=== PATIENT | female | born 1975 | race Caucasian/White ===

== ENCOUNTER 2022-04-21 11:28 | Outpatient (CLI) | payer BC, SELFPAY ==
[2022-04-21 16:06] LABS: SARS PCR* Negative SARS-CoV-2 (Negative)
== END 2022-04-21 11:29 | disposition home or self-care (01) ==
LOC: FBOREF 11:28
PROVIDERS: Visit Provider Surgery
DX: Z20.822 Contact with and (suspected) exposure to COVID-19 (principal); Z01.818 Encounter for other preprocedural examination
CPT/HCPCS: 87635

== ENCOUNTER 2022-04-22 10:39 | Outpatient (CLI) | payer BC, SELFPAY | END 2022-04-22 10:40 | disposition home or self-care (01) | LOC: OP CLINIC 10:41 | PROVIDERS: Visit Provider Surgery | DX: Z12.11 Encounter for screening for malignant neoplasm of colon (principal); K63.5 Polyp of colon; K62.1 Rectal polyp | CPT/HCPCS: 45385; 88305; 99153; J2250; J3010 ==

== ENCOUNTER 2025-05-02 08:34 | Outpatient (CLI) | payer BC, SELFPAY ==
--- NOTE | 2025-05-02 10:02 | P.ANES_ITS ---
Anesthesia Charges Start Date/Time Anesthesia Start Date: 05/02/25 Anesthesia Start Time: 09:31 Stop Date/Time Anesthesia Stop Date: 05/02/25 Anesthesia Stop Time: 10:00 Coding CPT Codes CPT Codes: LESLYE [place] INT NDSC NOS - [id number] ([id number]) P2 - PATIENT W/MILD SYST DISEASE, QX - COSMETIC ASSEMBLER SVC W/ MD MED DIRECTION, QK - CLOTH EXAMINER MACHINE 2-4 CNCRNT LESLYE PROC
--- NOTE | 2025-05-02 10:02 | W.ANESCHARGE ---
Anesthesia Charges Start Date/Time Anesthesia Start Date: 05/02/25 Anesthesia Start Time: 09:31 Stop Date/Time Anesthesia Stop Date: 05/02/25 Anesthesia Stop Time: 10:00 Coding CPT Codes CPT Codes: LESLYE [place] INT NDSC NOS - [id number] ([id number]) P2 - PATIENT W/MILD SYST DISEASE, QX - FIRE WARDEN SVC W/ MD MED DIRECTION, QK - DIE DESIGNER 2-4 CNCRNT LESLYE PROC
--- NOTE | 2025-05-02 10:03 | P.ANES_ITS ---
Anesthesia Charges Start Date/Time Anesthesia Start Date: 05/02/25 Anesthesia Start Time: 09:31 Stop Date/Time Anesthesia Stop Date: 05/02/25 Anesthesia Stop Time: 10:00 Coding CPT Codes CPT Codes: LESLYE LWR INTST NDSC NOS - [id number] ([id number]) QK - HUMAN RESOURCES TECHNICIAN 2-4 CNCRNT LESLYE PROC, QX - HEALTH AND SAFETY TECH SVC W/ MD MED DIRECTION, P2 - PATIENT W/MILD SYST DISEASE
--- NOTE | 2025-05-02 10:03 | W.ANESCHARGE ---
Anesthesia Charges Start Date/Time Anesthesia Start Date: 05/02/25 Anesthesia Start Time: 09:31 Stop Date/Time Anesthesia Stop Date: 05/02/25 Anesthesia Stop Time: 10:00 Coding CPT Codes CPT Codes: LESLYE LWR INTST NDSC NOS - [id number] ([id number]) QK - LONG GOODS DRIER 2-4 CNCRNT LESLYE PROC, QX - CHANGE NUMBER OPERATOR SVC W/ MD MED DIRECTION, P2 - PATIENT W/MILD SYST DISEASE
== END 2025-05-02 08:35 | disposition home or self-care (01) ==
LOC: OP CLINIC 08:35
PROVIDERS: PCP Family Medicine; Visit Provider Surgery
DX: Z12.11 Encounter for screening for malignant neoplasm of colon (principal); Z86.0100 Personal history of colon polyps, unspecified; D12.8 Benign neoplasm of rectum
CPT/HCPCS: 00811; 00812; 45384; 88305; J2704

== ENCOUNTER 2025-08-01 15:23 | Outpatient (CLI) | payer BC, SELFPAY | END 2025-08-01 15:24 | disposition home or self-care (01) | PROVIDERS: PCP Family Medicine; Visit Provider Obstetrics & Gynecology | DX: N95.1 Menopausal and female climacteric states (principal) | CPT/HCPCS: 80053; 82670; 83001; 83002 ==